=== PATIENT | male | born 1970 | race Caucasian/White ===

== ENCOUNTER 2017-02-18 07:36 | Emergency (ER) | payer SELFPAY ==
[2017-02-18 07:52] VITALS: BP 124/68; PULSE 65; TEMP 98; BMI 28.3
--- NOTE | 2017-02-18 08:45 | PDOC ---
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 Patient denies any difficulty swallowing, no respiratory difficulty, no chest pain or SOB. Denies taking any medication or supplementation. Patient is afebrile, denies weakness, no exertion symptoms. Denies any joint pain. Past Medical History: Denies. Allergies: No known allergies Medications: None Family History: Non-contributory Social History: Denies smoking, alcohol use, or IVDU Review of Systems GENERAL/CONSTITUTIONAL: No fever or chills. No weakness. No weight change. HEAD, EYES, EARS, NOSE AND THROAT: No change in vision. No ear pain or discharge. Dry mouth and throat. CARDIOVASCULAR: No chest pain or shortness of breath. RESPIRATORY: No cough, wheezing, or hemoptysis. GASTROINTESTINAL: No nausea, vomiting, diarrhea or constipation. No rectal bleeding. GENITOURINARY: No dysuria, frequency, or change in urination. MUSCULOSKELETAL: No joint or muscle swelling or pain. No neck or back pain. SKIN : No rash or easy bruising. NEUROLOGIC: No headache, vertigo, loss of consciousness, or loss of sensation. PSYCHIATRIC: No depression or anxiety. ENDOCRINE: No increased thirst. No abnormal weight change. HEMATOLOGIC/LYMPHATIC: No anemia, easy bleeding, or history of blood clots. No lymphadenopathy ALLERGIC/IMMUNOLOGIC: No hives or skin allergy. No latex allergy. Physical Exam: GENERAL: The patient is awake, alert, and fully oriented, in no acute distress. HEAD: Normal with no signs of trauma. EYES: Pupils equal, round and reactive to light, extraocular movements intact, sclera anicteric, conjunctiva clear. ENT: Ears normal, nares patent, oropharynx clear without exudates. No oral lesions. Tongue is dry.No uvula deviation NECK: Normal range of motion, supple without lymphadenopathy, JVD, or masses. LUNGS: Breath sounds equal, clear to auscultation bilaterally. No wheezes, and no crackles. HEART: Regular rate and rhythm, normal S1 and S2 without murmur, rub or gallop. ABDOMEN: Soft, nontender, normoactive bowel sounds. No guarding, no rebound. No masses. No bruising or abrasions MUSCULOSKELETAL: Normal range of motion, no edema. No clubbing or cyanosis. No cords, erythema, or tenderness. No CVA Tenderness. NEUROLOGICAL: Cranial nerves II through XII grossly intact. Normal speech, normal gait. SKIN: Warm, Dry, normal turgor, no rashes or lesions noted. Past History - Past Medical History Allergies/Adverse Reactions: Allergies Allergy/AdvReac Type Severity Reaction Status Date / Time No Known Allergies Allergy Verified 02/18/17 07:49 Home Medications: Ambulatory Orders NK [No Known Home Medication] 04/04/15 Other medical history: none - Psycho/Social/Smoking Cessation Hx Anxiety: No Suicidal Ideation: No Smoking History: Never smoked Have you smoked in the past 12 months: No Information on smoking cessation initiated: No Hx Alcohol Use: No Drug/Substance Use Hx: No Substance Use Type: None *Physical Exam - Vital Signs Last Vital Signs Temp Pulse Resp BP Pulse Ox 98.0 F 65 18 124/68 100 02/18/17 07:49 02/18/17 07:49 02/18/17 07:49 02/18/17 07:49 02/18/17 07:49 Medical Decision Making - Medical Decision Making 02/18/17 09:50 A/P: Patient here for evaluation of dry oral cavity and dry sensation when swallowing. Patient reports that he feels lesions on his tongue and it's tongue feels dry however there are no lesions noted upon assessment. Patient denies any chest pain or shortness of breath, no lethargy, no joint pain, no generalized fatigue. Rapid strep sent and is negative, patient will need to follow-up as outpatient for further workup and evaluation . Patient denies any acute pain. Reports that symptoms have been greater than 1 month. Is requesting name of a doctor he can follow up with was unsure where he can go. Follow up appointment at [address] [place] [address] on February 22 at 11:30 am. Patient verbalized understanding, will follow-up as indicated. Back to the emergency Department if any chest pain, shortness of breath, fatigue, joint pain , or any other concerns. *DC/Admit/Observation/Transfer Diagnosis at time of Disposition: Dry mouth, unspecified, Throat pain - Discharge Dispostion Disposition: HOME Condition at time of disposition: Good Admit: No - Referrals Referrals: [facility] [Provider Group] (TuesdayFebruary 22 at 11:[address] Laureano, Dry mouth, throat pain) - Patient Instructions Additional Instructions: An appointment has been made feel on February 22 at 11:30 AM at [facility] doctor Georgi. May need to follow-up with dental and ENT If any chest pain, shortness of breath, increased weakness, or any other concerns return to ER
== END 2017-02-18 10:04 | disposition home or self-care (01) ==
LOC: JER 07:36 → JERFT 07:36
DX: R68.2 Dry mouth, unspecified (principal)
CPT/HCPCS: 87070; 87430; 99281-25

== ENCOUNTER 2017-08-29 20:48 | Emergency (ER) | payer SELFPAY ==
--- NOTE | 2017-08-29 20:55 | PDOC ---
Rapid Medical Evaluation Time Seen by Provider: 08/29/17 20:49 Medical Evaluation: Allergies Allergy/AdvReac Type Severity Reaction Status Date / Time No Known Allergies Allergy Verified 02/18/17 07:49 08/29/17 20:50 The patient presents with a chief complaint of: 3 hours of chest pain, L arm pain and pain with breathing. I have performed a brief in-person evaluation of this patient; Pertinent physical exam findings: RRR, CTAB, pain with deep breaths I have ordered the following: EGK CXR, CBC, CMP, PT/INR, Trop, UA The patient will proceed to the ED for further evaluation.
[2017-08-29 21:14] VITALS: TEMP 97.7; BMI 25.8
[2017-08-29 21:33] LABS: HEMOGLOBIN 15.8 GM/dL (11.7-16.9); PLATELET COUNT 226 K/MM3 (134-434); WHITE BLOOD COUNT 4.6 K/mm3 (4.0-10.0)
[2017-08-29 21:38] LABS: URINE APPEARANCE CLEAR; URINE BILIRUBIN NEGATIVE (NEGATIVE); URINE BLOOD 2+ (NEGATIVE); URINE COLOR YELLOW; URINE GLUCOSE (UA) NEGATIVE (NEGATIVE); URINE KETONE NEGATIVE (NEGATIVE); URINE LEUK ESTERASE NEGATIVE (NEGATIVE); URINE NITRITE NEGATIVE (NEGATIVE); URINE PROTEIN NEGATIVE (NEGATIVE)
[2017-08-29 21:38] LABS: BASO % 0.5 % (0-2.0); EOS % 6.3 % (0-4.5); HEMATOCRIT 46.5 % (35.4-49); MCH 30.2 pg (25.7-33.7); MEAN CELL VOLUME 88.9 fl (80-96); MEAN PLT VOLUME 8.2 fl (7.5-11.1); NEUT % 51.2 % (42.8-82.8); RBC 5.23 M/mm3 (4.00-5.60); RDW 13.1 % (11.9-15.9)
[2017-08-29 21:45] LABS: INR 1.03 (0.82-1.09); PROTHROMBIN TIME (PATIENT) 11.6 SEC (9.98-11.88)
[2017-08-29 22:05] LABS: EPI CELLS RARE /HPF (FEW); URINE BACTERIA RARE /hpf (NONE SEEN); URINE MUCUS RARE
--- NOTE | 2017-08-29 22:17 | PDOC ---
Attending Attestation - Physicial Exam PE: 08/29/17 23:59 GENERAL: Well developed, well nourished. Awake and alert. No acute distress. HEENT: Normocephalic, atraumatic. PERRLA, EOMI. No conjunctival pallor. Sclera are non- icteric. Moist mucous membranes. Oropharynx is clear. NECK: Supple. Full ROM. No JVD. Carotid pulses 2+ and symmetric, without bruits. No thyromegaly. No lymphadenopathy. CARDIOVASCULAR: Regular rate and rhythm. No murmurs, rubs, or gallops. Distal pulses are 2+ and symmetric. PULMONARY: No evidence of respiratory distress. Lungs clear to auscultation bilaterally. No wheezing, rales or rhonchi. ABDOMINAL: Soft. Non-tender. Non-distended. No rebound or guarding. No organomegaly. Normoactive bowel sounds. NEUROLOGICAL: Alert, awake, appropriate. Cranial nerves 2-12 intact. No deficits to light touch and temperature in face, upper extremities and lower extremities. No motor deficits in the in face, upper extremities and lower extremities. Normoreflexic in the upper and lower extremities. Normal speech. Gait is normal without ataxia. - Medical Decision Making 08/29/17 23:59 Documentation prepared by Lolita Iniguez, acting as medical health researcher for Mari Waterman MD. <Lolita Iniguez - Last Filed: 08/29/17 23:59> - Resident Resident Name: Blake Daniels - ED Attending Attestation I have performed the following: I have examined & evaluated the patient, The case was reviewed & discussed with the resident, I agree w/resident's findings & plan, Exceptions are as noted - HPI HPI: 08/29/17 22:16 47 YO MALE has been experiencing left sided chest pain for 4 hours with tingling down his left arm - Medical Decision Making 08/31/17 00:03 pt;s second cardiac enzyme was negative and he was discharged home <Mari Waterman - Last Filed: 08/31/17 00:06>
[2017-08-29 22:26] LABS: ALBUMIN 3.9 g/dl (3.4-5.0); ANION GAP 9 (8-16); BILIRUBIN,TOTAL 0.5 mg/dL (0.2-1.0); BLOOD UREA NITROGEN 15 mg/dL (7-18); CHLORIDE 104 mmol/L (98-107); CO2 25 mmol/L (21-32); CREATININE 0.8 mg/dL (0.7-1.3); GLUCOSE,RANDOM 135 mg/dL (74-106); MAGNESIUM 2.2 mg/dL (1.8-2.4); POTASSIUM 3.5 mmol/L (3.5-5.1); SGOT/AST 30 U/L (15-37); SGPT/ALT 63 U/L (12-78); SODIUM 138 mmol/L (136-145); TOT PROT 7.5 g/dl (6.4-8.2)
[2017-08-29 22:27] LABS: ALK PHOS 112 U/L (45-117)
--- NOTE | 2017-08-29 22:45 | PDOC ---
History of Present Illness - General Chief Complaint: Chest Pain Stated Complaint: HIGH BP, NUMBNESS LEFT ARM Time Seen by Provider: 08/29/17 20:49 History Source: Patient Exam Limitations: No Limitations - History of Present Illness Initial Comments: 08/29/17 22:44 47m with left sided chest pain for the past 4 hours with tingling down the left arm. Left heavy objects for work, works in construction. Pain has been the same. Worse on palpation, movement LUE and deep inspiration. Denies diaphoresis, sob, 08/29/17 22:50 08/29/17 22:52 Past History - Past Medical History Allergies/Adverse Reactions: Allergies Allergy/AdvReac Type Severity Reaction Status Date / Time No Known Allergies Allergy Verified 02/18/17 07:49 Home Medications: Ambulatory Orders NK [No Known Home Medication] 04/04/15 COPD: No Other medical history: anxiety - Suicide/Smoking/Psychosocial Hx Smoking History: Never smoked Have you smoked in the past 12 months: No Information on smoking cessation initiated: No Hx Alcohol Use: No Drug/Substance Use Hx: No Substance Use Type: None Review of Systems - Review of Systems Able to Perform ROS?: Yes Is the patient limited Thai proficient: Yes Constitutional: No: Symptoms Reported HEENTM: No: Symptoms Reported Respiratory: No: Symptoms reported Cardiac (ROS): Yes: See HPI. No: Syncope ABD/GI: No: Symptoms Reported : No: Symptoms Reported Musculoskeletal: No: Symptoms Reported Integumentary: No: Symptoms Reported Neurological: No: Symptoms reported All Other Systems: Reviewed and Negative *Physical Exam - Vital Signs Last Vital Signs Temp Pulse Resp BP Pulse Ox 97.7 F 62 20 148/76 99 08/29/17 20:51 08/29/17 20:51 08/29/17 20:51 08/29/17 20:51 08/29/17 20:51 - Physical Exam General Appearance: Yes: Nourished, Appropriately Dressed, Apparent Distress HEENT: positive: EOMI, JANICE, Normal ENT Inspection Neck: positive: Trachea midline. negative: Tender Respiratory/Chest: positive: Lungs Clear, Normal Breath Sounds. negative: Chest Tender, Respiratory Distress Cardiovascular: positive: Regular Rhythm, Regular Rate, S1, S2 Gastrointestinal/Abdominal: positive: Normal Bowel Sounds, Flat, Soft. negative : Tender Musculoskeletal: positive: Normal Inspection Extremity: positive: Normal Capillary Refill, Normal Inspection, Normal Range of Motion Integumentary: positive: Normal Color, Dry, Warm Neurologic: positive: Fully Oriented, Alert, Normal Mood/Affect. 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 ED Treatment Course - LABORATORY CBC & Chemistry Diagram: 08/29/17 21:22 08/29/17 21:22 - ADDITIONAL ORDERS Additional order review: Laboratory Results 08/29/17 08/29/17 08/29/17 21:22 21:22 21:22 PT with INR 11.60 INR 1.03 Sodium 138 Potassium 3.5 Chloride 104 Carbon Dioxide 25 Anion Gap 9 BUN 15 Creatinine 0.8 Creat Clearance w eGFR > 60 Random Glucose 135 H D Calcium 8.0 L Magnesium 2.2 Total Bilirubin 0.5 AST 30 ALT 63 D Alkaline Phosphatase 112 Creatine Kinase 157 Creatine Kinase Index 0.6 CK-MB (CK-2) < 1.000 Troponin I < 0.02 Total Protein 7.5 Albumin 3.9 Urine Color Urine Appearance Urine pH Ur Specific [place] Urine Protein Urine Glucose (UA) Urine Ketones Urine Blood Urine Nitrite Urine Bilirubin Urine Urobilinogen Urine WBC (Auto) Urine RBC (Auto) Ur Epithelial Cells Urine Bacteria Urine Mucus 08/29/17 21:18 PT with INR INR Sodium Potassium Chloride Carbon Dioxide Anion Gap BUN Creatinine Creat Clearance w eGFR Random Glucose Calcium Magnesium Total Bilirubin AST ALT Alkaline Phosphatase Creatine Kinase Creatine Kinase Index CK-MB (CK-2) Troponin I Total Protein Albumin Urine Color Yellow Urine Appearance Clear Urine pH 5.0 Ur Specific [place] 1.028 Urine Protein Negative Urine Glucose (UA) Negative Urine Ketones Negative Urine Blood 2+ H Urine Nitrite Negative Urine Bilirubin Negative Urine Urobilinogen 2.0 Urine WBC (Auto) <1 Urine RBC (Auto) 3 Ur Epithelial Cells Rare Urine Bacteria Rare Urine Mucus Rare 08/29/17 21:22 RBC 5.23 MCV 88.9 MCHC 34.0 RDW 13.1 MPV 8.2 Neutrophils % 51.2 Lymphocytes % 34.0 Monocytes % 8.0 Eosinophils % 6.3 H Basophils % 0.5 Medical Decision Making - Medical Decision Making 08/29/17 23:01 All labs, EKG and CXR normal or Within normal limit 08/29/17 23:31 will repeat troponins at 1:30am 08/29/17 23:32 PAtient signed out to Dr. Beckett *DC/Admit/Observation/Transfer Diagnosis at time of Disposition: Atypical chest pain - Referrals - Patient Instructions - Post Discharge Activity
--- NOTE | 2017-08-29 23:42 | PDOC ---
*Physical Exam - Vital Signs Last Vital Signs Temp Pulse Resp BP Pulse Ox 97.7 F 62 20 148/76 99 08/29/17 20:51 08/29/17 20:51 08/29/17 20:51 08/29/17 20:51 08/29/17 20:51 <Mari Waterman - Last Filed: 08/30/17 01:08> - Vital Signs Last Vital Signs Temp Pulse Resp BP Pulse Ox 97.7 F 62 20 148/76 99 08/29/17 20:51 08/29/17 20:51 08/29/17 20:51 08/29/17 20:51 08/29/17 20:51 <Tomy Beckett - Last Filed: 08/30/17 01:47> ED Treatment Course - LABORATORY CBC & Chemistry Diagram: 08/29/17 21:22 08/29/17 21:22 - ADDITIONAL ORDERS Additional order review: Laboratory Results 08/29/17 08/29/17 08/29/17 21:22 21:22 21:22 PT with INR 11.60 INR 1.03 Sodium 138 Potassium 3.5 Chloride 104 Carbon Dioxide 25 Anion Gap 9 BUN 15 Creatinine 0.8 Creat Clearance w eGFR > 60 Random Glucose 135 H D Calcium 8.0 L Magnesium 2.2 Total Bilirubin 0.5 AST 30 ALT 63 D Alkaline Phosphatase 112 Creatine Kinase 157 Creatine Kinase Index 0.6 CK-MB (CK-2) < 1.000 Troponin I < 0.02 Total Protein 7.5 Albumin 3.9 Urine Color Urine Appearance Urine pH Ur Specific [place] Urine Protein Urine Glucose (UA) Urine Ketones Urine Blood Urine Nitrite Urine Bilirubin Urine Urobilinogen Urine WBC (Auto) Urine RBC (Auto) Ur Epithelial Cells Urine Bacteria Urine Mucus 08/29/17 21:18 PT with INR INR Sodium Potassium Chloride Carbon Dioxide Anion Gap BUN Creatinine Creat Clearance w eGFR Random Glucose Calcium Magnesium Total Bilirubin AST ALT Alkaline Phosphatase Creatine Kinase Creatine Kinase Index CK-MB (CK-2) Troponin I Total Protein Albumin Urine Color Yellow Urine Appearance Clear Urine pH 5.0 Ur Specific [place] 1.028 Urine Protein Negative Urine Glucose (UA) Negative Urine Ketones Negative Urine Blood 2+ H Urine Nitrite Negative Urine Bilirubin Negative Urine Urobilinogen 2.0 Urine WBC (Auto) <1 Urine RBC (Auto) 3 Ur Epithelial Cells Rare Urine Bacteria Rare Urine Mucus Rare 08/29/17 21:22 RBC 5.23 MCV 88.9 MCHC 34.0 RDW 13.1 MPV 8.2 Neutrophils % 51.2 Lymphocytes % 34.0 Monocytes % 8.0 Eosinophils % 6.3 H Basophils % 0.5 <Mari Waterman - Last Filed: 08/30/17 01:08> - LABORATORY CBC & Chemistry Diagram: 08/29/17 21:22 08/29/17 21:22 - ADDITIONAL ORDERS Additional order review: Laboratory Results 08/29/17 08/29/17 08/29/17 21:22 21:22 21:22 PT with INR 11.60 INR 1.03 Sodium 138 Potassium 3.5 Chloride 104 Carbon Dioxide 25 Anion Gap 9 BUN 15 Creatinine 0.8 Creat Clearance w eGFR > 60 Random Glucose 135 H D Calcium 8.0 L Magnesium 2.2 Total Bilirubin 0.5 AST 30 ALT 63 D Alkaline Phosphatase 112 Creatine Kinase 157 Creatine Kinase Index 0.6 CK-MB (CK-2) < 1.000 Troponin I < 0.02 Total Protein 7.5 Albumin 3.9 Urine Color Urine Appearance Urine pH Ur Specific [place] Urine Protein Urine Glucose (UA) Urine Ketones Urine Blood Urine Nitrite Urine Bilirubin Urine Urobilinogen Urine WBC (Auto) Urine RBC (Auto) Ur Epithelial Cells Urine Bacteria Urine Mucus 08/29/17 21:18 PT with INR INR Sodium Potassium Chloride Carbon Dioxide Anion Gap BUN Creatinine Creat Clearance w eGFR Random Glucose Calcium Magnesium Total Bilirubin AST ALT Alkaline Phosphatase Creatine Kinase Creatine Kinase Index CK-MB (CK-2) Troponin I Total Protein Albumin Urine Color Yellow Urine Appearance Clear Urine pH 5.0 Ur Specific [place] 1.028 Urine Protein Negative Urine Glucose (UA) Negative Urine Ketones Negative Urine Blood 2+ H Urine Nitrite Negative Urine Bilirubin Negative Urine Urobilinogen 2.0 Urine WBC (Auto) <1 Urine RBC (Auto) 3 Ur Epithelial Cells Rare Urine Bacteria Rare Urine Mucus Rare 08/29/17 21:22 RBC 5.23 MCV 88.9 MCHC 34.0 RDW 13.1 MPV 8.2 Neutrophils % 51.2 Lymphocytes % 34.0 Monocytes % 8.0 Eosinophils % 6.3 H Basophils % 0.5 <Tomy Beckett - Last Filed: 08/30/17 01:47> Medical Decision Making - Medical Decision Making 08/29/17 23:41 Care taken over from Dr. Daniels. 08/30/17 01:45 Repeat troponin negative. Will discharge to home. <Tomy Beckett - Last Filed: 08/30/17 01:47> *DC/Admit/Observation/Transfer <Mari Waterman - Last Filed: 08/30/17 01:08> <Tomy Beckett - Last Filed: 08/30/17 01:47> Diagnosis at time of Disposition: Atypical chest pain - Discharge Dispostion Condition at time of disposition: Stable - Referrals Referrals: Richard Brewster MD [Staff Physician] - - Patient Instructions Printed Discharge Instructions: DI for Atypical Chest Pain Additional Instructions: Please followup with in medical clinic run by Dr Brewster within 1-2 days. Return if any increase/return of pain, fever, or other concerning symptoms.
[2017-08-30] MEDS ORDERED: CEFEPIME HCL 2 GM VIAL (RESTRICTED TO ID) IVPB STA (01:54)
[2017-08-30 02:01] VITALS: BP 138/74; PULSE 64
--- NOTE | 2017-08-31 13:20 | EKG ---
Test Reason : Blood Pressure : / mmHG Vent. Rate : 062 BPM Atrial Rate : 062 BPM P-R Int : 144 ms QRS Dur : 080 ms QT Int : 396 ms P-R-T Axes : 073 036 022 degrees QTc Int : 401 ms NORMAL SINUS RHYTHM NORMAL ECG NO PREVIOUS ECGS AVAILABLE Confirmed by DERIAN PRIETO MD ([id number]) on 08/31/2017 1:20:00 PM Referred By: Confirmed By:DERIAN PRIETO MD
== END 2017-08-30 02:01 | disposition home or self-care (01) ==
LOC: JER 20:48
DX: R07.89 Other chest pain (principal)
CPT/HCPCS: 36415; 71046-TC; 80053; 81003; 81015; 82550; 82553; 83735; 84484; 85025; 85610; 93005; 93010; 99283-25

== ENCOUNTER 2020-06-25 10:48 | Emergency (ER) | payer OTHER ==
[2020-06-25 11:06] VITALS: TEMP 97.5; BMI 24.5
--- OUTSIDE RECORDS SUMMARY | 2020-06-25 11:21 | XMS ---
:1970 Author Organization [facility] Support Name Relationship Address Phone VENKAT AMARO DAUGHTER [address], [address] [place] [address] [employer] Unavailable Unavailable Unavailable Re-disclosure Warning The records that you are about to access may contain information from federally- assisted alcohol or drug abuse programs. If such information is present, then the following federally mandated warning applies: This information has been disclosed to you from records protected by federal confidentiality rules (42 CFR part 2). The federal rules prohibit you from making any further disclosure of this information unless further disclosure is expressly permitted by the written consent of the person to whom it pertains or as otherwise permitted by 42 CFR part 2. A general authorization for the release of medical or other information is NOT sufficient for this purpose. The Federal rules restrict any use of the information to criminally investigate or prosecute any alcohol or drug abuse patient.The records that you are about to access may contain highly sensitive health information, the redisclosure of which is protected by Article 27-F of the [facility] Public Health law. If you continue you may haveaccess to information: Regarding HIV / AIDS; Provided by facilities licensed or operated by the [facility] Office of Mental Health; or Provided by the [facility] Office for People With Developmental Disabilities. If such information is present, then the following [facility] mandated warning applies: This information has been disclosed to you from confidential records which are protected by state law. State law prohibits you from making any further disclosure of this information without the specific written consent of the person to whom it pertains, or as otherwise permitted by law. Any unauthorized further disclosure in violation of state law may result in a fine or assisted sentence or both. A general authorization for the release of medical or other information is NOT sufficient authorization for further disclosure. Insurance Providers Payer name Policy type Policy ID Covered Covered libertarian's Policy P koby / Coverage libertarian ID relationship to [facility] ormation type [employer] HEALTH [id number] SP [id number] [employer]IONS MEDICAID [id number] SP [id number] PENDING SP EXCHANGE SELF PAY SP INSURANCE Results ID Date Data Source [id number] 01/04/2020 12:00:00 AM EDT [facility] Name Value Range Interpretation Code Description Data Fidelina rce(s) Supporting Document(s ) 2018-nCoV [facility] RNA XXX NELLY+probe- Imp This lab was ordered by [facility] and reported by [employer]. ID Date Data Source [id number] 01/01/2020 12:00:00 AM EDT [facility] Name Value Range Interpretation Code Description Data Fidelina rce(s) Supporting Document(s ) 2018-nCoV [place] RNA XXX NELLY+probe- Imp This lab was ordered by [facility] nd reported by [employer] Procedure
[2020-06-25] MEDS ORDERED: ACETAMINOPHEN 1000 MG/100 ML VIAL (NON FORMULARY) IVPB ONE (11:32)
[2020-06-25] MEDS ORDERED: PANTOPRAZOLE SODIUM 40 MG in SODIUM CHLORIDE 100 ML IVPB ONE (11:32)
[2020-06-25] MEDS ORDERED: MAG HYDROX/AL HYDROX/SIMETH 30 ML UNIT-DOSE CUP PO ONE (11:32)
[2020-06-25] MEDS ORDERED: MAG HYDROX/AL HYDROX/SIMETH 30 ML UNIT-DOSE CUP ONE (11:37)
[2020-06-25] MEDS ORDERED: PANTOPRAZOLE SODIUM 40 MG/100 ML BAG IVPB ONE (11:37)
[2020-06-25] MEDS ORDERED: ACETAMINOPHEN INJECTION 100 ML IVPB ONE (11:39)
--- NOTE | 2020-06-25 12:01 | PDOC ---
Documentation entered by Jason Aguilar SCRIBE, acting as scribe for Armand Contreras MD. Armand Contreras MD: This documentation has been prepared by the Jeff meneses Alexis, SCRIBE, under my direction and personally reviewed by me in its entirety. I confirm that the documentation accurately reflects all work, treatment, procedures, and medical decision making performed by me. History of Present Illness - General Chief Complaint: Chest Pain Stated Complaint: CHEST BURNING Time Seen by Provider: 06/25/20 11:16 History Source: Patient Exam Limitations: Language Barrier - History of Present Illness Initial Comments: 06/25/20 11:35 The patient is a Croatian speaking 50 year old male with no significant past medical history who presents to the emergency department for evaluation of chest pain that began six months ago but worsened today. The patient reports his chest pain radiates to his throat and it feels like acid is filling up. Pt also reports pain "in his lungs". 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 Pt denies SOB. Denies N/V/abdominal pain. Denies a significant family history. The patient denies abdominal/back pain, cough, and shortness of breath. Denies fever, chills, nausea, vomiting, and/or any GI symptoms. Denies any symptoms. Denies any other symptoms. Allergies: NKA Social Hx: None reported Surgical Hx: None reported Past History - Medical History Allergies/Adverse Reactions: Allergies Allergy/AdvReac Type Severity Reaction Status Date / Time No Known Allergies Allergy Verified 06/25/20 11:01 Home Medications: Ambulatory Orders NK [No Known Home Medication] 04/04/15 COPD: No - Psycho-Social/Smoking History Smoking History: Never smoked Have you smoked in the past 12 months: No - Substance Abuse Hx (Audit-C & DAST Scrn) How often the patient has a drink containing alcohol: Monthly or less Number of drinks the patient has on a typical day: 1 or 2 How often the patient has six or more drinks on one occasion: Never Score: In Men: 4 or > Positive; In Women: 3 or > Positive: 1 Screen Result (Pos requires Nsg. Audit-10AR): Negative In the last yr the pt used illegal drug/Rx for NonMed reason: No Score: Yes response is considered Positive: 0 Screen Result (Positive result requires Nsg. DAST-10): Negative Review of Systems - Review of Systems Able to Perform ROS?: Yes Comments:: 06/25/20 11:35 "GENERAL/CONSTITUTIONAL: No fever or chills. No weakness. HEAD, EYES, EARS, NOSE AND THROAT: No change in vision. No ear pain or discharge. No sore throat. CARDIOVASCULAR: +chest pain that radiates to the throat no shortness of breath, no loss of consciousness RESPIRATORY: No cough, wheezing, or hemoptysis. GASTROINTESTINAL: No nausea, vomiting, diarrhea or constipation. GENITOURINARY: No dysuria, frequency, or change in urination. MUSCULOSKELETAL: No joint or muscle swelling or pain. No neck or back pain. SKIN: No rash NEUROLOGIC: No vertigo, no change in strength/sensation. ENDOCRINE: No increased thirst. No abnormal weight change. HEMATOLOGIC/LYMPHATIC: No anemia, easy bleeding, or history of blood clots. ALLERGIC/IMMUNOLOGIC: No hives or skin allergy." All Other Systems: Reviewed and Negative *Physical Exam - Vital Signs Last Vital Signs Temp Pulse Resp BP Pulse Ox 97.5 F L 75 18 122/80 100 06/25/20 11:01 06/25/20 11:01 06/25/20 11:01 06/25/20 11:01 06/25/20 11:01 - Physical Exam 06/25/20 11:23 "GENERAL: Awake, alert, and fully oriented, in no acute distress. HEAD: No signs of trauma EYES: PERRLA, EOMI, sclera anicteric, conjunctiva clear ENT: Auricles normal inspection, hearing grossly normal, nares patent, orophary nx clear without exudates. Moist mucosa NECK: Nontender, no stepoffs, Normal ROM, supple, no lymphadenopathy, JVD, or masses LUNGS: Breath sounds equal, clear to auscultation bilaterally. No wheezes, and no crackles HEART: Regular rate and rhythm, normal S1 and S2, no murmurs, rubs or gallops ABDOMEN: Soft, nontender, normoactive bowel sounds. No guarding, no rebound. No masses EXTREMITIES: Normal range of motion, no edema. No clubbing or cyanosis. No cords, erythema, or tenderness NEUROLOGICAL: Cranial nerves II through XII intact. 5/5 strength and sensation in all extremities, Normal speech, normal gait, normal cerebellar function SKIN: Warm, Dry, normal turgor, no rashes or lesions noted." Heart Score/ECG Review - History History: Slightly suspicious - Electrocardiogram EKG: Normal - Age Age: 45-65 - Risk Factors Based on the list above the patient has:: No risk factors known - Troponin Troponin: </= normal limit - Score Heart Score - Total: 1 - ECG Impressions Comment:: 06/25/20 13:32 NSR, no IRENE/STDs, no TWIs, axis wnl, intervals wnl ED Treatment Course - LABORATORY CBC & Chemistry Diagram: 06/25/20 11:48 06/25/20 11:48 Medical Decision Making - Medical Decision Making 06/25/20 13:33 50 M with chest pain radiating to throat, suspect reflux. Pt with normal exam and EKG. Pt also complaining of lung pain but no SOB. Clear lung exam. - Labs, trop - CXR - GI cocktail Discharge - Discharge Information Problems reviewed: Yes Clinical Impression/Diagnosis: Chest pain Disposition: HOME - Follow up/Referral Referrals: Ishaan Coronado MD, MD [Staff Physician] - Bismark Rosario MD [Staff Physician] - - Patient Discharge Instructions Patient Printed Discharge Instructions: DI for Atypical Chest Pain Additional Instructions: Please follow up with Dr. Coronado (steel turner) for evaluation of your lungs. Follow up with Dr. Rosario for evaluation of your acid reflux. If you experience worsening pain, shortness of breath, or any other concerning symptoms, return to the ER immediately. Someone from the [facility] will call you to set up an appointment with a primary doctor. Call this number if you do not receive a call. [phone] Inés un seguimiento con el Dr. Coronado (neumlogo) para duy evaluacin de devin pulmones. Inés un seguimiento con el Dr. Rosario para evaluar carl reflujo cido. Si experimenta un empeoramiento del dolor, dificultad para respirar o cualquier otro sntoma, regrese a la meagan de emergencias de inmediato. Alguien de la [facility] lo llamar para programar duy ishmael con un mdico de atencin primaria. Llame a kory nmero si no recibe duy llamada. [phone] - Post Discharge Activity
--- NOTE | 2020-06-25 12:28 | EKG ---
Test Reason : Blood Pressure : / mmHG Vent. Rate : 063 BPM Atrial Rate : 063 BPM P-R Int : 136 ms QRS Dur : 084 ms QT Int : 396 ms P-R-T Axes : 062 038 030 degrees QTc Int : 405 ms NORMAL SINUS RHYTHM NORMAL ECG WHEN COMPARED WITH ECG OF 29-AUG-2017 21:49, NO SIGNIFICANT CHANGE WAS FOUND Confirmed by Jamaal Reyna ([id number]) on 06/25/2020 12:27:51 PM Referred By: Confirmed By:Jamaal Reyna
[2020-06-25 12:29] LABS: BASO % 0.1 % (0-2.0); EOS % 4.7 % (0-4.5); HEMATOCRIT 44.3 % (35.4-49); LYMPH % 25.8 % (8-40); MCH 30.3 pg (25.7-33.7); MCHC 33.9 g/dl (32.0-35.9); MEAN CELL VOLUME 89.3 fl (80-96); MEAN PLT VOLUME 8.3 fl (7.5-11.1); MONO % 6.6 % (3.8-10.2); NEUT % 62.8 % (42.8-82.8); PLATELET COUNT 224 K/MM3 (134-434); RBC 4.96 M/mm3 (4.00-5.60); RDW 12.9 % (11.9-15.9); WHITE BLOOD COUNT 3.8 K/mm3 (4.0-10.0)
[2020-06-25 12:54] LABS: CHLORIDE 105 mmol/L (98-107); POTASSIUM 4.1 mmol/L (3.5-5.1); SODIUM 137 mmol/L (136-145)
[2020-06-25 12:56] LABS: CALCIUM 8.6 mg/dL (8.5-10.1)
[2020-06-25 12:57] LABS: ALBUMIN 3.8 g/dl (3.4-5.0); ANION GAP 7 MMOL/L (8-16); BLOOD UREA NITROGEN 14.4 mg/dL (7-18); CO2 26 mmol/L (21-32); GLUCOSE,RANDOM 87 mg/dL (74-106); LIPASE 111 U/L (73-393)
[2020-06-25 13:00] LABS: CREATININE 0.7 mg/dL (0.55-1.3); SGOT/AST 34 U/L (15-37); SGPT/ALT 40 U/L (13-61)
[2020-06-25 13:01] LABS: TOT PROT 7.2 g/dl (6.4-8.2)
[2020-06-25 13:02] LABS: ALK PHOS 97 U/L (45-117)
[2020-06-25 13:40] VITALS: BP 141/76; PULSE 61
== END 2020-06-25 13:47 | disposition home or self-care (01) ==
LOC: JER 10:48
PROC: 3E0333Z Introduction of Anti-inflammatory into Peripheral Vein, Percutaneous Approach (ICD-10-PCS; principal; 2020-06-25)
PROC: 3E033GC Introduction of Other Therapeutic Substance into Peripheral Vein, Percutaneous Approach (ICD-10-PCS; 2020-06-25)
DX: R07.9 Chest pain, unspecified (principal)
CPT/HCPCS: 36415; 71046-TC-FY; 80053; 82550; 82553; 83690; 84484; 85025; 93005; 93010; 99285-25; J0131

== ENCOUNTER 2020-07-23 11:00 | Emergency (ER) | payer OTHER ==
[2020-07-23 11:10] VITALS: BMI 24.0
[2020-07-23] MEDS ORDERED: ACETAMINOPHEN 1000 MG/100 ML VIAL (NON FORMULARY) IVPB ONE (12:42)
[2020-07-23 12:59] LABS: BASO % 0.1 % (0-2.0); EOS % 0.2 % (0-4.5); HEMATOCRIT 41.7 % (35.4-49); HEMOGLOBIN 14.1 GM/dL (11.7-16.9); LYMPH % 26.1 % (8-40); MCHC 33.8 g/dl (32.0-35.9); MEAN CELL VOLUME 88.8 fl (80-96); MEAN PLT VOLUME 8.1 fl (7.5-11.1); MONO % 9.6 % (3.8-10.2); PLATELET COUNT 173 K/MM3 (134-434); RDW 13.3 % (11.9-15.9); WHITE BLOOD COUNT 3.4 K/mm3 (4.0-10.0)
[2020-07-23 13:21] LABS: CHLORIDE 103 mmol/L (98-107); POTASSIUM 3.7 mmol/L (3.5-5.1); SODIUM 136 mmol/L (136-145)
[2020-07-23 13:22] LABS: INR 1.13 (0.83-1.09); PROTHROMBIN TIME (PATIENT) 13.9 SEC (9.7-13.0)
[2020-07-23 13:23] LABS: CALCIUM 7.9 mg/dL (8.5-10.1)
[2020-07-23 13:24] LABS: ALBUMIN 3.6 g/dl (3.4-5.0); ANION GAP 7 MMOL/L (8-16); BLOOD UREA NITROGEN 11.2 mg/dL (7-18); CO2 27 mmol/L (21-32); GLUCOSE,RANDOM 93 mg/dL (74-106); MAGNESIUM 2.3 mg/dL (1.8-2.4)
[2020-07-23 13:25] LABS: ACTIVATED PTT 34.3 SECONDS (25.2-36.5)
[2020-07-23 13:27] LABS: CREATININE 0.7 mg/dL (0.55-1.3); SGOT/AST 117 U/L (15-37); SGPT/ALT 153 U/L (13-61)
[2020-07-23 13:28] LABS: BILIRUBIN,TOTAL 0.5 mg/dL (0.2-1)
[2020-07-23 13:29] LABS: TOT PROT 7.2 g/dl (6.4-8.2)
[2020-07-23 13:30] LABS: ALK PHOS 211 U/L (45-117)
[2020-07-23] MEDS ORDERED: DEXAMETHASONE SOD PHOSPHATE 10 MG/1 ML VIAL IVPUSH ONE ×2 (14:10)
[2020-07-23] MEDS ORDERED: ACETAMINOPHEN INJECTION 100 ML IVPB ONE (14:11)
[2020-07-23] MEDS ORDERED: DEXAMETHASONE SOD PHOSPHATE 10 MG/1 ML VIAL ONE (15:00)
[2020-07-23 15:14] LABS: BILIRUBIN,DIRECT 0.2 mg/dL (0.0-0.2)
[2020-07-23 15:19] LABS: LDH 227 U/L (87-246)
[2020-07-23 16:43] VITALS: BP 106/79; PULSE 72; TEMP 98.1
== END 2020-07-23 16:44 | disposition home or self-care (01) ==
LOC: MERGE 11:00 → JER 11:00
PROC: 3E0333Z Introduction of Anti-inflammatory into Peripheral Vein, Percutaneous Approach (ICD-10-PCS; principal; 2020-07-23)
PROC: 3E033GC Introduction of Other Therapeutic Substance into Peripheral Vein, Percutaneous Approach (ICD-10-PCS; 2020-07-23)
DX: U07.1 COVID-19 (principal); R06.02 Shortness of breath; R05 Cough
CPT/HCPCS: 36415; 71045-TC-FY; 80053; 82248; 82550; 82728; 83615; 83735; 84484; 85025; 85610; 85730; 86140; 87804; 93005; 93010; 99284-25; C9803; J0131; J1100; U0003

== ENCOUNTER 2021-05-27 16:57 | Emergency (ER) | payer OTHER ==
[2021-05-27 17:14] VITALS: TEMP 98.5; BMI 27.4
[2021-05-27] MEDS ORDERED: LIDOCAINE 5% TOPICAL PATCH TP ONE (17:44)
[2021-05-27] MEDS ORDERED: ACETAMINOPHEN 325 MG TABLET (FP) PO ONE (17:44)
[2021-05-27] MEDS ORDERED: LIDOCAINE 5% TOPICAL PATCH ONE (17:55)
[2021-05-27] MEDS ORDERED: ACETAMINOPHEN 325 MG TABLET (FP) ONE (17:55)
[2021-05-27 18:53] LABS: BASO % 0.7 % (0-2.0); EOS % 2.1 % (0-4.5); HEMATOCRIT 41.5 % (35.4-49); HEMOGLOBIN 14.5 GM/dL (11.7-16.9); LYMPH % 34.7 % (8-40); MCH 30.9 pg (25.7-33.7); MCHC 34.9 g/dl (32.0-35.9); MEAN CELL VOLUME 88.6 fl (80-96); MEAN PLT VOLUME 7.8 fl (7.5-11.1); MONO % 7.7 % (3.8-10.2); NEUT % 54.8 % (42.8-82.8); PLATELET COUNT 219 10^3/uL (134-434); RBC 4.68 M/mm3 (4.00-5.60); RDW 12.8 % (11.9-15.9); WHITE BLOOD COUNT 4.5 K/mm3 (4.0-10.0)
[2021-05-27] MEDS ORDERED: KETOROLAC TROMETHAMINE 15 MG/ML VIAL IM ONE (19:06)
[2021-05-27 19:11] LABS: INR 0.98 (0.83-1.09)
[2021-05-27 19:13] LABS: ACTIVATED PTT 29.5 SECONDS (25.2-36.5); CHLORIDE 106 mmol/L (98-107); SODIUM 139 mmol/L (136-145)
[2021-05-27 19:15] LABS: ALBUMIN 3.9 g/dl (3.4-5.0); ANION GAP 7 MMOL/L (8-16); BLOOD UREA NITROGEN 14.4 mg/dL (7-18); CALCIUM 8.2 mg/dL (8.5-10.1); CO2 26 mmol/L (21-32)
[2021-05-27 19:16] LABS: GLUCOSE,RANDOM 85 mg/dL (74-106)
[2021-05-27 19:18] LABS: SGPT/ALT 33 U/L (13-61)
[2021-05-27 19:19] LABS: CREATININE 0.8 mg/dL (0.55-1.3); SGOT/AST 28 U/L (15-37)
[2021-05-27 19:21] LABS: ALK PHOS 100 U/L (45-117)
[2021-05-27] MEDS ORDERED: KETOROLAC TROMETHAMINE 15 MG/ML VIAL ONE (19:40)
[2021-05-27 19:47] VITALS: BP 119/89
[2021-05-27 19:48] VITALS: PULSE 55
[2021-05-28] MEDS ORDERED: LIDOCAINE PATCH REMOVAL MC SCH (06:00)
== END 2021-05-27 20:32 | disposition home or self-care (01) ==
LOC: JER 16:57
PROC: 3E0233Z Introduction of Anti-inflammatory into Muscle, Percutaneous Approach (ICD-10-PCS; principal; 2021-05-27)
DX: M79.10 Myalgia, unspecified site (principal); R07.9 Chest pain, unspecified
CPT/HCPCS: 36415; 71045-TC-FY; 80053; 82550; 82553; 84484; 85025; 85379; 85610; 85730; 93005; 93010; 96372; 99285-25; C9803; U0003; U0005

== ENCOUNTER 2021-06-09 13:30 | Emergency (ER) | payer OTHER ==
[2021-06-09 14:09] VITALS: BP 117/74; PULSE 67; TEMP 98; BMI 26.0
[2021-06-09] MEDS ORDERED: IBUPROFEN 600 MG TABLET (FP) PO ONE ×2 (15:53→16:15)
== END 2021-06-09 19:49 | disposition home or self-care (01) ==
LOC: JER 13:30
DX: S39.011A Strain of muscle, fascia and tendon of abdomen, initial encounter (principal); W19.XXXA Unspecified fall, initial encounter; Y92.9 Unspecified place or not applicable
CPT/HCPCS: 71250-TC; 74150-TC; 93005; 93010; 99284-25

== ENCOUNTER 2021-08-11 18:07 | Emergency (ER) | payer OTHER ==
[2021-08-11 18:28] VITALS: BP 122/77; PULSE 64; TEMP 98.2; BMI 29.2
[2021-08-11] MEDS ORDERED: SILVER SULFADIAZINE 1% TOP CREAM 50 GM JAR TP ONE ×2 (18:38→18:39)
[2021-08-11] MEDS ORDERED: DIPHTH,PERTUSS(ACELL),TET 0.5 ML DISP.SYRIN IM ONE ×2 (18:39→18:49)
== END 2021-08-11 18:52 | disposition home or self-care (01) ==
LOC: JERFT 18:07
PROC: 3E0234Z Introduction of Serum, Toxoid and Vaccine into Muscle, Percutaneous Approach (ICD-10-PCS; principal; 2021-08-11)
DX: T24.232A Burn of second degree of left lower leg, initial encounter (principal); Y99.8 Other external cause status
CPT/HCPCS: 90471; 90715; 99283-25

== ENCOUNTER 2022-01-20 13:20 | Emergency (ER) | payer OTHER ==
[2022-01-20 13:41] VITALS: BP 117/69; PULSE 63; TEMP 97.7; BMI 24.1
[2022-01-20] MEDS ORDERED: SODIUM CHLORIDE 0.9% 500 ML INFUS.BAG IV ONE (15:32)
[2022-01-20] MEDS ORDERED: ACETAMINOPHEN 1000 MG/100 ML BAG IVPB ONE (15:33)
[2022-01-20] MEDS ORDERED: ACETAMINOPHEN INJECTION 100 ML IVPB ONE (15:55)
[2022-01-20 16:53] LABS: BASO % 0.2 % (0-2.0); EOS % 3.5 % (0-4.5); HEMATOCRIT 42.1 % (35.4-49); HEMOGLOBIN 14.5 GM/dL (11.7-16.9); LYMPH % 27.1 % (8-40); MCH 30.7 pg (25.7-33.7); MCHC 34.4 g/dl (32.0-35.9); MEAN CELL VOLUME 89.2 fl (80-96); MEAN PLT VOLUME 8.3 fl (7.5-11.1); MONO % 6.4 % (3.8-10.2); NEUT % 62.8 % (42.8-82.8); PLATELET COUNT 219 10^3/uL (134-434); RBC 4.72 M/mm3 (4.00-5.60); RDW 13.1 % (11.9-15.9); WHITE BLOOD COUNT 4.9 K/mm3 (4.0-10.0)
[2022-01-20 17:12] LABS: CALCIUM 8.9 mg/dL (8.5-10.1)
[2022-01-20 17:13] LABS: BLOOD UREA NITROGEN 13.2 mg/dL (7-18)
[2022-01-20 17:16] LABS: CREATININE 0.7 mg/dL (0.55-1.3)
[2022-01-20 17:18] LABS: BILIRUBIN,TOTAL 0.6 mg/dL (0.2-1); TOT PROT 7.2 g/dl (6.4-8.2)
== END 2022-01-20 18:10 | disposition home or self-care (01) ==
LOC: JERFT 13:20 → JER 13:20
PROC: 3E033NZ Introduction of Analgesics, Hypnotics, Sedatives into Peripheral Vein, Percutaneous Approach (ICD-10-PCS; principal; 2022-01-20)
DX: R07.9 Chest pain, unspecified (principal)
CPT/HCPCS: 0241U-QW; 36415; 71046-TC-FY; 80053; 84484; 85025; 85379; 93005; 93010; 99284-25

== ENCOUNTER 2022-05-29 10:36 | Emergency (ER) | payer OTHER ==
[2022-05-29 10:42] VITALS: BP 122/76; PULSE 61; RESP 16; TEMP 98; BMI 25.1
[2022-05-29] MEDS ORDERED: FLUORESCEIN NA 1 EA STRIP OU ONE (10:55)
[2022-05-29] MEDS ORDERED: TETRACAINE 0.5% HCL 0.6ML DROPPER.BOTTLE OU ONE (10:55)
[2022-05-29] MEDS ORDERED: FLUORESCEIN NA 1 EA STRIP ONE (11:03)
[2022-05-29] MEDS ORDERED: TETRACAINE 0.5% OPHTH SOLN 2 ML BOTTLE ONE (11:03)
== END 2022-05-29 11:19 | disposition home or self-care (01) ==
LOC: JERFT 10:36
DX: S05.01XA Injury of conjunctiva and corneal abrasion without foreign body, right eye, initial encounter (principal)
CPT/HCPCS: 99283-25